=== PATIENT | female | born 1950 | race Caucasian/White ===

== ENCOUNTER → 2021-04-24 | Outpatient (CLI) | payer MEDICAID | END | disposition home or self-care (01) | LOC: LAB 15:53 | PROVIDERS: ATTEND Internal Medicine Pulmonary Disease | DX: Z01.812 Encounter for preprocedural laboratory examination (principal); Z20.822 Contact with and (suspected) exposure to COVID-19 | CPT/HCPCS: 36415; 87426 ==

== ENCOUNTER → 2021-04-25 | Outpatient (CLI) | payer MEDICAID ==
[~2021-04-25] MED LIST: ALBUTEROL SULF 2.5 MG/0.5ML(0.5%) NEB SOLN ONE
== END | disposition home or self-care (01) ==
LOC: RT 08:15
PROVIDERS: ATTEND Internal Medicine Pulmonary Disease
DX: J44.9 Chronic obstructive pulmonary disease, unspecified (principal); J98.4 Other disorders of lung
CPT/HCPCS: 94060; 94727; 94729

== ENCOUNTER 2024-07-31 11:33 | Inpatient (IN) | payer BC, MEDICAID ==
[~2024-07-31] VITALS: Ht 162.6 cm; Wt 61.7 kg
[2024-07-31] MEDS: SODIUM CHLORIDE 0.9% 1,000 ML IV ONE (12:04)
[2024-07-31 12:10] VITALS: PULSE 71; RESP 18; O2SAT 97
[2024-07-31 12:18] LABS: Basophils # (auto) 0 10 ^3/uL (0-0.2); Basophils % (auto) 0.5 % (0.0-2.0); Eosinophils # (auto) 0.2 10 ^3/uL (0-0.8); Hematocrit 41.5 % (36.0-46.0); Hemoglobin 14.1 g/dL (12.2-16.2); Lymphocytes # (auto) 2.1 10 ^3/uL (0.4-5.4); Lymphocytes % (auto) 26.6 % (10.0-50.0); Mean Corpuscular Hemoglobin 29.6 pg (28.0-32.0); Mean Corpuscular Volume 86.9 fL (80.0-100.0); Monocytes # (auto) 0.8 10 ^3/uL (0-1.3); Monocytes % (auto) 10.3 % (0.0-12.0); Neutrophils # (auto) 4.8 10 ^3/uL (1.6-8.6); Neutrophils % (auto) 60.6 % (37.0-80.0); Platelet Count (auto) 166 10^3/uL (140-450); Red Blood Cells 4.77 10^6/uL (4.0-5.20); Red Cell Distribution Width 14.7 % (11.8-14.3); White Blood Cell 7.9 10^3/uL (4.4-10.8)
[2024-07-31 12:30] LABS: Alanine Aminotransferase 26 U/L (7-40); Albumin 4.4 g/dL (3.2-4.8); Alkaline Phosphatase 50 U/L (46-116); Anion Gap 5 (5-15); Aspartate Aminotransferase 29 U/L (13-40); Bilirubin, Total 0.4 mg/dL (0.2-1.0); Blood Urea Nitrogen 12 mg/dL (9-23); Calcium 8.9 mg/dL (8.7-10.4); Carbon Dioxide 28 mmol/L (20-31); Chloride 111 mmol/L (98-107); Glucose 157 mg/dL (74-106); Lipase 49 U/L (12-53); Sodium 144 mmol/L (136-145)
[2024-07-31 12:31] LABS: Total Protein 6.6 g/dL (5.7-8.2)
[2024-07-31] MEDS: FAMOTIDINE (10MG/ML) 2ML VL IV ONE (12:59)
[2024-07-31] MEDS: NITROGLYCERIN 2% OINT 1GM PKG TD ONE (13:01)
[2024-07-31] MEDS: MORPHINE SULFATE INJ 2 MG/ml SYRG IV ONE (13:02)
[2024-07-31] MEDS: FUROSEMIDE 40 MG/4 ML VIAL IV ONE (13:32)
[2024-07-31] MEDS: ASPirin 325 MG TAB PO ONE (13:32)
[2024-07-31] MEDS ORDERED: DOCUSATE SOD 100 MG CAP PO PRN (15:45)
[2024-07-31] MEDS ORDERED: ONDANSETRON HCL 4 MG/2 ML VIAL IV PRN (15:45)
[2024-07-31] MEDS ORDERED: NITROGLYCERIN 0.4 MG SL TAB SL PRN (15:45)
[2024-07-31] MEDS ORDERED: HYDROmorphone HCL 2 MG/ML VL/or syr IV PRN (15:45)
[2024-07-31] MEDS ORDERED: HYDROcodone-ACET 5/325MG TAB PO PRN (15:45)
[2024-07-31] MEDS ORDERED: MORPHINE SULFATE INJ 2 MG/ml SYRG IV PRN (15:45)
[2024-07-31 15:52] LABS: Basophils # (auto) 0.1 10 ^3/uL (0-0.2); Basophils % (auto) 0.8 % (0.0-2.0); Eosinophils # (auto) 0.1 10 ^3/uL (0-0.8); Eosinophils % (auto) 1.5 % (0.0-7.0); Monocytes # (auto) 0.8 10 ^3/uL (0-1.3); Monocytes % (auto) 9.1 % (0.0-12.0); Red Cell Distribution Width 14.6 % (11.8-14.3)
[2024-07-31 16:02] LABS: Hematocrit 42.6 % (36.0-46.0); Hemoglobin 14.3 g/dL (12.2-16.2); Lymphocytes % (auto) 21.9 % (10.0-50.0); Mean Corpuscular Hemoglobin 29.2 pg (28.0-32.0); Mean Corpuscular Hgb Conc. 33.6 g/dL (32.0-36.0); Mean Corpuscular Volume 86.8 fL (80.0-100.0); Neutrophils % (auto) 66.7 % (37.0-80.0); Nucleated Red Blood Cells % 0.1 %; Platelet Count (auto) 175 10^3/uL (140-450); Red Blood Cells 4.91 10^6/uL (4.0-5.20); White Blood Cell 8.9 10^3/uL (4.4-10.8)
[2024-07-31] MEDS ORDERED: hydrALAZINE HCL 20 MG/ML VL IV PRN (16:45)
[2024-07-31] MEDS: CLOPIDOGREL BISULFATE 75 MG TAB PO ONE (16:46)
[2024-07-31] MEDS ORDERED: DEXTROSE (50%) 50ML SYRG IV PRN (17:00)
[2024-07-31 17:03] LABS: INR 1.1 (0.9-1.15); Partial Thromboplastin Time 24.3 SEC (24.5-34.5); Prothrombin Time 11.6 sec (9.3-11.8)
[2024-07-31 17:08] LABS: Magnesium 1.5 mg/dL (1.6-2.6)
[2024-07-31] MEDS: HEPARIN SODIUM (PORCINE) 5000 UNITS/ML 1ML VIAL IV ONE (17:15)
[2024-07-31] MEDS: HEPARIN DRIP/D5W 100UNITS/ML 250 ML IV SCH (17:16)
[2024-07-31] MEDS: ACCU-CHEK COMFORT CURVE STRIP VI SCH (17:24)
[2024-07-31] MEDS: InsuLIN REG 1unit/0.01ml Soln (100units/ml) SC SCH (17:31)
[2024-07-31 18:37] LABS: Urine Bacteria None Seen /hpf (None Seen)
[2024-07-31 18:47] LABS: Urine Blood Negative /uL (Negative); Urine Clarity Clear (Clear); Urine Color Colorless (Yellow); Urine Protein, UAD Negative (Negative); Urine Specific Gravity 1.007 (1.001-1.035); Urine Urobilinogen Normal (Negative); Urine WBC <1 /hpf (0 - 5); Urine pH 5.5 (5.0-9.0)
[2024-07-31 19:30] VITALS: PULSE 90; RESP 16; O2SAT 95
[2024-07-31] MEDS: ATORVASTATIN 20 MG TAB PO SCH (22:09)
[2024-07-31 22:10] VITALS: BP 165/80; PULSE 85; RESP 18; TEMP 98.8; O2SAT 95
[2024-07-31] MEDS: SODIUM CHLOR 0.9% PF (SALINE LOCK) 10ML VIAL/SYR IV SCH (22:10)
[2024-07-31] MEDS: METOPROLOL TARTRATE 25 MG TAB PO SCH (22:10)
[2024-07-31 23:10] VITALS: BP 165/80; PULSE 85; RESP 18; TEMP 98.8; O2SAT 95
[2024-07-31 23:20] LABS: INR 1.12 (0.9-1.15); Partial Thromboplastin Time 34.5 SEC (24.5-34.5); Prothrombin Time 11.8 sec (9.3-11.8)
[2024-08-01] VITALS (14 sets, daily range): BP systolic 129–168; BP diastolic 63–85; PULSE 76–93; RESP 17–20; TEMP 98–99.3; O2SAT 93–98
[2024-08-01] MEDS: HEPARIN SODIUM (PORCINE) 5000 UNITS/ML 1ML VIAL IV ONE (00:41)
[2024-08-01] MEDS: HEPARIN DRIP/D5W 100UNITS/ML 250 ML IV SCH (00:42)
[2024-08-01 07:20] LABS: Basophils # (auto) 0.1 10 ^3/uL (0-0.2); Basophils % (auto) 0.4 % (0.0-2.0); Eosinophils # (auto) 0.2 10 ^3/uL (0-0.8); Eosinophils % (auto) 1.6 % (0.0-7.0); Hematocrit 46.5 % (36.0-46.0); Hemoglobin 15.7 g/dL (12.2-16.2); Lymphocytes # (auto) 3.2 10 ^3/uL (0.4-5.4); Lymphocytes % (auto) 23.5 % (10.0-50.0); Mean Corpuscular Hemoglobin 29.4 pg (28.0-32.0); Mean Corpuscular Hgb Conc. 33.8 g/dL (32.0-36.0); Monocytes # (auto) 1.5 10 ^3/uL (0-1.3); Neutrophils # (auto) 8.7 10 ^3/uL (1.6-8.6); Neutrophils % (auto) 63.5 % (37.0-80.0); Platelet Count (auto) 216 10^3/uL (140-450); Red Blood Cells 5.34 10^6/uL (4.0-5.20); Red Cell Distribution Width 14.6 % (11.8-14.3); White Blood Cell 13.7 10^3/uL (4.4-10.8)
[2024-08-01 07:33] LABS: Alanine Aminotransferase 45 U/L (7-40); Albumin 4.7 g/dL (3.2-4.8); Alkaline Phosphatase 57 U/L (46-116); Anion Gap 7 (5-15); Aspartate Aminotransferase 190 U/L (13-40); BUN/Creatinine Ratio 11.4 (10.0-20.0); Bilirubin, Total 0.7 mg/dL (0.2-1.0); Blood Urea Nitrogen 12 mg/dL (9-23); Calcium 9.7 mg/dL (8.7-10.4); Carbon Dioxide 29 mmol/L (20-31); Chloride 104 mmol/L (98-107); Glucose 156 mg/dL (74-106); Potassium 3.7 mmol/L (3.5-5.1); Sodium 140 mmol/L (136-145); Total Protein 7.4 g/dL (5.7-8.2)
[2024-08-01 09:12] LABS: INR 1.13 (0.9-1.15); Partial Thromboplastin Time 60.5 SEC (24.5-34.5); Prothrombin Time 11.9 sec (9.3-11.8)
[2024-08-01] MEDS: LIDOCAINE 1% HCL (LOCAL ANESTH.) INJ 20ML MDV ONE (09:57)
[2024-08-01] MEDS: ANGIOMAX 250 MG VIAL IV ONE (09:57)
[2024-08-01] MEDS: MIDAZOLAM HCL 2MG/2ML 2ml VIAL (1mg/ml) ONE (09:57)
[2024-08-01] MEDS: fentaNYL CITRATE 100 MCG/2 ML VL ONE (09:57)
[2024-08-01] MEDS: LIDOCAINE 2%HCL (LOCAL ANESTH.) INJ 20ML MDV ONE (09:58)
[2024-08-01] MEDS: SODIUM CHL 0.9% 50 ML ONE (10:00)
[2024-08-01] MEDS: CLOPIDOGREL BISULFATE 75 MG TAB PO SCH (10:00)
[2024-08-01] MEDS: ASPirin 81 mg TAB ONE (10:52)
[2024-08-01] MEDS: CLOPIDOGREL BISULFATE 75 MG TAB ONE (10:52)
[2024-08-01] MEDS: IODIXANOL 320MG/ML 100ML BTL IV ONE (11:58)
[2024-08-01] MEDS: PANTOPRAZOLE 40 MG/10 ML VIAL INJ IV SCH (13:56)
[2024-08-01] MEDS: ASPirin-EC 81 mg tab PO SCH (13:58)
[2024-08-01 13:59] LABS: INR 1.4 (0.9-1.15); Prothrombin Time 14.5 sec (9.3-11.8)
[2024-08-01] MEDS: MAGNESIUM SULFATE 1GM/100ML 100 ML IV SCH (14:00)
[2024-08-01] MEDS: LISINOPRIL 5 MG TAB PO SCH (14:00)
[2024-08-02] VITALS (7 sets, daily range): BP systolic 103–135; BP diastolic 42–72; PULSE 66–86; RESP 18–20; TEMP 97.9–98.9; O2SAT 0–98
[2024-08-02] MEDS: PANTOPRAZOLE 40 MG TAB PO SCH (05:02)
[2024-08-02 07:13] LABS: Basophils # (auto) 0 10 ^3/uL (0-0.2); Basophils % (auto) 0.4 % (0.0-2.0); Eosinophils # (auto) 0.1 10 ^3/uL (0-0.8); Eosinophils % (auto) 0.9 % (0.0-7.0); Hematocrit 44.8 % (36.0-46.0); Hemoglobin 15.3 g/dL (12.2-16.2); Lymphocytes # (auto) 2.2 10 ^3/uL (0.4-5.4); Mean Corpuscular Hemoglobin 29.5 pg (28.0-32.0); Mean Corpuscular Hgb Conc. 34.2 g/dL (32.0-36.0); Mean Corpuscular Volume 86.3 fL (80.0-100.0); Monocytes # (auto) 1.6 10 ^3/uL (0-1.3); Monocytes % (auto) 15.3 % (0.0-12.0); Neutrophils # (auto) 6.3 10 ^3/uL (1.6-8.6); Neutrophils % (auto) 61.4 % (37.0-80.0); Nucleated Red Blood Cells % 0.1 %; Platelet Count (auto) 185 10^3/uL (140-450); Red Blood Cells 5.19 10^6/uL (4.0-5.20); Red Cell Distribution Width 14.6 % (11.8-14.3); White Blood Cell 10.2 10^3/uL (4.4-10.8)
[2024-08-02 07:27] LABS: Alanine Aminotransferase 28 U/L (7-40); Alkaline Phosphatase 53 U/L (46-116); Anion Gap 6 (5-15); BUN/Creatinine Ratio 16.5 (10.0-20.0); Blood Urea Nitrogen 16 mg/dL (9-23); Calcium 9.4 mg/dL (8.7-10.4); Carbon Dioxide 27 mmol/L (20-31); Chloride 106 mmol/L (98-107); Glucose 179 mg/dL (74-106); Magnesium 2.1 mg/dL (1.6-2.6); Potassium 3.8 mmol/L (3.5-5.1); Sodium 139 mmol/L (136-145)
[2024-08-02 07:28] LABS: Albumin 4.5 g/dL (3.2-4.8); Aspartate Aminotransferase 67 U/L (13-40); Bilirubin, Total 0.9 mg/dL (0.2-1.0); Total Protein 6.9 g/dL (5.7-8.2)
[2024-08-02] MEDS: ACETAMINOPHEN 325 MG TAB PO PRN (16:14)
[2024-08-02] MEDS ORDERED: OMEP-434 PO (17:57)
[2024-08-02] MEDS ORDERED: METF-370 PO (17:57)
[2024-08-02] MEDS ORDERED: SITA100T7 PO (17:57)
[2024-08-02] MEDS ORDERED: MELA5TAB10 PO (17:57)
[2024-08-02] MEDS ORDERED: MECL25CH38 PO (17:57)
[2024-08-02] MEDS ORDERED: INSLANTI SC (17:57)
[2024-08-02] MEDS ORDERED: LISI-275 PO (17:57)
[2024-08-02] MEDS ORDERED: FENO145T27 PO (17:57)
[2024-08-03] VITALS (7 sets, daily range): BP systolic 128–154; BP diastolic 63–78; PULSE 63–82; RESP 17–19; TEMP 36.6; O2SAT 95–98
[2024-08-03 07:18] LABS: Basophils # (auto) 0 10 ^3/uL (0-0.2); Basophils % (auto) 0.4 % (0.0-2.0); Eosinophils # (auto) 0.1 10 ^3/uL (0-0.8); Eosinophils % (auto) 1.5 % (0.0-7.0); Hematocrit 42.3 % (36.0-46.0); Hemoglobin 14.2 g/dL (12.2-16.2); Lymphocytes # (auto) 2.5 10 ^3/uL (0.4-5.4); Lymphocytes % (auto) 28.4 % (10.0-50.0); Mean Corpuscular Hemoglobin 29.4 pg (28.0-32.0); Mean Corpuscular Hgb Conc. 33.6 g/dL (32.0-36.0); Mean Corpuscular Volume 87.4 fL (80.0-100.0); Monocytes # (auto) 1.3 10 ^3/uL (0-1.3); Monocytes % (auto) 14.7 % (0.0-12.0); Neutrophils # (auto) 4.9 10 ^3/uL (1.6-8.6); Nucleated Red Blood Cells % 0.1 %; Platelet Count (auto) 174 10^3/uL (140-450); Red Blood Cells 4.84 10^6/uL (4.0-5.20); Red Cell Distribution Width 14.6 % (11.8-14.3); White Blood Cell 8.9 10^3/uL (4.4-10.8)
[2024-08-03 07:30] LABS: Alanine Aminotransferase 20 U/L (7-40); Albumin 4.3 g/dL (3.2-4.8); Alkaline Phosphatase 50 U/L (46-116); Anion Gap 5 (5-15); Aspartate Aminotransferase 39 U/L (13-40); BUN/Creatinine Ratio 24.7 (10.0-20.0); Blood Urea Nitrogen 23 mg/dL (9-23); Calcium 9.5 mg/dL (8.7-10.4); Carbon Dioxide 29 mmol/L (20-31); Chloride 107 mmol/L (98-107); Glucose 162 mg/dL (74-106); Potassium 3.6 mmol/L (3.5-5.1); Sodium 141 mmol/L (136-145)
[2024-08-03 07:31] LABS: Bilirubin, Total 0.6 mg/dL (0.2-1.0); Total Protein 6.6 g/dL (5.7-8.2)
[2024-08-03] MEDS ORDERED: ATOR20TA50 PO ×2 (12:47→16:38)
[2024-08-03] MEDS ORDERED: ASPI-543 PO ×2 (12:47→16:38)
[2024-08-03] MEDS ORDERED: PANT40T PO ×2 (12:47→16:38)
[2024-08-03] MEDS ORDERED: MET25T PO ×2 (12:47→16:38)
[2024-08-03] MEDS ORDERED: LISI-275 PO ×2 (12:47→16:38)
[2024-08-03] MEDS ORDERED: CLOP75TA70 PO ×2 (12:47→16:38)
== END 2024-08-03 18:15 | disposition home or self-care (01) | DRG 321 ==
LOC: EDUNIT# 11:33 → EDBD 11:33 → ER 11:33 → TELE 15:36 → TELE-WESTW 23:10
PROVIDERS: ADMIT Internal Medicine; ATTEND Nurse Practitioner
PROC: 027034Z Dilation of Coronary Artery, One Artery with Drug-eluting Intraluminal Device, Percutaneous Approach (ICD-10-PCS; principal; 2024-08-01)
PROC: B215YZZ Fluoroscopy of Left Heart using Other Contrast (ICD-10-PCS; 2024-08-01)
PROC: B212YZZ Fluoroscopy of Single Coronary Artery Bypass Graft using Other Contrast (ICD-10-PCS; 2024-08-01)
PROC: B218YZZ Fluoroscopy of Left Internal Mammary Bypass Graft using Other Contrast (ICD-10-PCS; 2024-08-01)
DX: I21.4 Non-ST elevation (NSTEMI) myocardial infarction (principal); I50.33 Acute on chronic diastolic (congestive) heart failure; E11.65 Type 2 diabetes mellitus with hyperglycemia; E78.5 Hyperlipidemia, unspecified; I25.10 Atherosclerotic heart disease of native coronary artery without angina pectoris; I11.0 Hypertensive heart disease with heart failure; N20.0 Calculus of kidney; K76.0 Fatty (change of) liver, not elsewhere classified; K74.60 Unspecified cirrhosis of liver; J45.909 Unspecified asthma, uncomplicated; K44.9 Diaphragmatic hernia without obstruction or gangrene; Z95.1 Presence of aortocoronary bypass graft; Z91.012 Allergy to eggs; Z88.0 Allergy status to penicillin; Z79.02 Long term (current) use of antithrombotics/antiplatelets; Z79.4 Long term (current) use of insulin; Z79.82 Long term (current) use of aspirin; Z90.49 Acquired absence of other specified parts of digestive tract
CPT/HCPCS: 36415; 71045; 74176; 80053; 80061; 81001; 82962; 83036; 83605; 83690; 83735; 83880; 84443; 84484; 85025; 85610; 85730; 92941; 93005; 93306; 93455; 93970; 96365; 96375; 99152; C1894; G0378; J1815; J2003; J2250; J2470; J3490; Q9967